=== PATIENT | male | born 1965 | race Two or more races ===

== ENCOUNTER 2024-07-27 08:54 | Outpatient (CLI) | payer OTHER | END 2024-07-27 23:59 | disposition home or self-care (01) | LOC: RAD 08:54 | DX: S46.011A Strain of muscle(s) and tendon(s) of the rotator cuff of right shoulder, initial encounter (principal); M19.011 Primary osteoarthritis, right shoulder; X58.XXXA Exposure to other specified factors, initial encounter; Y93.89 Activity, other specified; Y92.89 Other specified places as the place of occurrence of the external cause; Y99.8 Other external cause status | CPT/HCPCS: 73030 ==